=== PATIENT | male | born 1990 | race African-American/Black ===

== ENCOUNTER 2018-10-10 20:02 | Inpatient (IN) | payer SELFPAY ==
[~2018-10-10] VITALS: Ht 188 cm; Wt 74.9 kg
[2018-10-10] MEDS ORDERED: ALBU83IN INH (20:36)
[2018-10-10 20:56] LABS: HEMATOCRIT 49.7 % (42.0-52.0); MEAN CORPUSCULAR HEMOGLOBIN 31.9 pg (27.0-33.0); MEAN CORPUSCULAR HGB CONC 34.2 g/dl (32.0-36.5); MEAN CORPUSCULAR VOLUME 93.2 fl (80.0-96.0); PLATELET COUNT, AUTOMATED 271 10^3/uL (150-450); RED BLOOD COUNT 5.33 10^6/uL (4.30-6.10); WHITE BLOOD COUNT 10.6 10^3/uL (4.0-10.0)
[2018-10-10 21:22] LABS: AMPHETAMINES LEVEL URINE NEGATIVE (NEGATIVE); BARBITURATES URINE NEGATIVE (NEGATIVE); BENZODIAZEPINES URINE NEGATIVE (NEGATIVE); CANNABINOIDS URINE POSITIVE (NEGATIVE); COCAINE METABOLITE URINE NEGATIVE (NEGATIVE); METHADONE URINE NEGATIVE (NEGATIVE); OPIATES URINE NEGATIVE (NEGATIVE); PHENCYCLIDINE URINE NEGATIVE (NEGATIVE)
[2018-10-10 22:09] LABS: ACETAMINOPHEN LEVEL < 2.0 UG/ML (10.0-30.0); ALBUMIN 4.5 GM/DL (3.2-5.2); ALT/SGPT 24 U/L (12-78); BILIRUBIN,DIRECT 0.2 MG/DL (0.0-0.2); BILIRUBIN,TOTAL 0.6 MG/DL (0.2-1.0); BLOOD UREA NITROGEN 13 MG/DL (7-18); CALCIUM LEVEL 9.2 MG/DL (8.5-10.1); CARBON DIOXIDE LEVEL 25 MEQ/L (21-32); CHLORIDE LEVEL 107 MEQ/L (98-107); CREATININE FOR GFR 1.41 MG/DL (0.70-1.30); ETHYL ALCOHOL (ETHANOL) < 0.003 % (0.000-0.010); GLOMERULAR FILTRATION RATE > 60.0 (>60); GLUCOSE, FASTING 117 MG/DL (70-100); POTASSIUM SERUM 4.5 MEQ/L (3.5-5.1); SALICYLATE LEVEL 3.6 MG/DL (5.0-30.0); SODIUM LEVEL 140 MEQ/L (136-145); THYROID STIMULATING HORMONE 0.877 uIU/ML (0.358-3.740); TOTAL PROTEIN 7.9 GM/DL (6.4-8.2)
[2018-10-10] MEDS ORDERED: MAALOX 30 ML SUSP *UDC PO PRN (23:45)
[2018-10-10] MEDS ORDERED: traZODone 50 MG TAB PO PRN (23:45)
[2018-10-10] MEDS ORDERED: ACETAMINOPHEN TAB 650MG DOSE (2X325MG) PO PRN (23:45)
[2018-10-10] MEDS ORDERED: MOM 30ML SUSPENSION UDC PO PRN (23:45)
[2018-10-10] MEDS ORDERED: VENTAER INH (23:56)
[2018-10-11] MEDS ORDERED: NICOTINE 21MG/24HR 1 EA TRANSDERMAL TD ONE (00:15)
[2018-10-11 02:53] VITALS: BP 112/63
[2018-10-11 06:43] VITALS: BP 116/62
[2018-10-11] MEDS ORDERED: NICOTINE 21MG/24HR 1 EA TRANSDERMAL TD SCH (09:00)
--- NOTE | 2018-10-11 10:12 | HPEPDOC ---
[facility] Medical History & Physical Date of Admission Oct 11, 2018 History and Physical PCP: None ATTENDING: Dr. Jarad Srinivasan HPI: 28 [facility], being medically examined today. No acute medical complaints today. Denies any fevers, chills, weakness, fatigue, BAILEY, CP, SOB, cough, palpitations, abdominal pain, N/V/D or changes in bowel or bladder habits. PMHx: Asthma Depression Anxiety Self-harm, cutting PSHX: Denies SOCHX: [place] [facility] [place] Marital Status: Single Kids: 1 Employment: [employer] Tobacco use: 2 packs per day ETOH: Denies Illicit Drugs: Marijuana daily IV Drug Use: Denies Tattoos done unprofessionally: Several FAMHX: Mother: Unknown Father: Alive, diabetes, alcohol use Siblings: 2 sisters Alive, asthma, bipolar disorder Children: Alive, well Unexpected deaths due to medical reasons: None. ROS: As noted in HPI, otherwise 11pt ROS of systems reviewed and unremarkable. PE: GEN: 28 yo M, appears stated age. Well-nourished, well developed. No acute distress. Alert and oriented x 3. Pleasant, interactive. HEENT: Normocephalic, atraumatic. Pupils are equal, round, and reactive to light. Extraocular movements are intact. No nystagmus appreciated. Sclera are nonicteric. Conjunctiva without injection. Nose midline. Nasal turbinates without bogginess. EACs both patent BL. TMs both visualized and whitt with good cone of light, no bulging or erythema. No facial asymmetry. Moist mucous membranes. Dentition fair. Pharynx pink and moist, no cobblestoning. Neck supple, trachea midline. No lymphadenopathy or thyromegaly appreciated. CHEST: Regular rate and rhythm, +S1, +S2 LUNGS: Clear to auscultation bilaterally. No wheezes, rales, or rhonchi. Breathing appears symmetric and easy. Patient is speaking in full sentences. No accessory muscle use. ABD: Round, soft, non-tender, non-distended. +Bowel sounds throughout. No rebound or guarding. No costovertebral angle tenderness. EXT: Pulses 2+ bilaterally dorsalis pedis and radial. No lower extremity edema appreciated. SKIN: [place], dry, warm. Capillary refill <2sec. No rashes. Superficial lacerations noted to the right forearm. NEURO: Alert and oriented x 3. Cranial nerves III-XII are intact. No focal deficits appreciated. EKG: Pending A&P: 28 yo M [facility] for unspecified depressive disorder 1. Psych. Plan per Psychiatry. Obtain baseline EKG to assure the safety of psychiatric medications as they can prolong the QT interval. 2. Nicotine dependence. Patch available. 3. Mild leukocytosis. The patient is asymptomatic. Temperature this morning is noted to be 99.1. Possible stress response. Recheck CBC in a.m. 4. Elevated serum creatinine. Unknown baseline. Possibly related to poor oral intake. Encourage fluids. Request UA with reflex culture. Recheck BMP in a.m. 5. Follow up with PCP on discharge. 6. Substance use. Management per psychiatry. 7. Asthma. Albuterol HFA 2 puffs every 4 hours as needed. 8. Superficial lacerations. Continue to keep area clean and dry. Dry dressing if needed. 9. Staff member Benny present throughout exam. Vital Signs Vital Signs Date Time Temp Pulse Resp B/P (MAP) Pulse Ox O2 Delivery O2 Flow Rate FiO2 10/11/18 06:43 99.1 85 16 116/62 (80) 10/11/18 01:28 95 Room Air Laboratory Data Labs 24H Laboratory Tests 2 10/10/18 20:47: Nucleated Red Blood Cells % (auto) 0.0, Anion Gap 8, Glomerular Filtration Rate > 60.0, Calcium Level 9.2, Aspartate Amino Transf (AST/SGOT) 22, Alanine Aminotransferase (ALT/SGPT) 24, Alkaline Phosphatase 52, Total Bilirubin 0.6, Direct Bilirubin 0.2, Total Protein 7.9, Albumin 4.5, Albumin/Globulin Ratio 1.32, Thyroid Stimulating Hormone (TSH) 0.877, Salicylates Level 3.6L, Urine Amphetamines Screen NEGATIVE, Urine Benzodiazepines Screen NEGATIVE, Urine Opiates Screen NEGATIVE, Urine Methadone Screen NEGATIVE, Acetaminophen Level < 2.0L, Urine Barbiturates Screen NEGATIVE, Urine Phencyclidine Screen NEGATIVE, Urine Cocaine Metabolite Screen NEGATIVE, Urine Cannabinoids Screen POSITIVEH, Ethyl Alcohol Level < 0.003 CBC/BMP Laboratory Tests 10/10/18 20:47 Red Blood Count 5.33, Mean Corpuscular Volume 93.2, Mean Corpuscular Hemoglobin 31.9, Mean Corpuscular Hemoglobin Concent 34.2, Red Cell Distribution Width 13.4 Home Medications Scheduled PRN Albuterol Sulfate (Ventolin Hfa) 108 Mcg/Act Aer, 2 PUFFS INH Q4H PRN for SHORTNESS OF BREATH Allergies Coded Allergies: No Known Drug Allergy (Verified Allergy, Unknown, 10/10/18) Bailey Yarbrough Oct 11, 2018 10:12
[2018-10-11] MEDS ORDERED: ALBUTEROL 90 MCG/ACT 8GM HFA INHALER INH PRN (10:15)
--- NOTE | 2018-10-11 11:27 | MHHPEPDOC ---
General Date Of Admission: Oct 10, 2018 Legal Status: 9.39 Chief Complaint "I had a panic attack and cut myself to relieve emotional pain." History of Present Illness HISTORY OF THE PRESENT ILLNESS: Patient is a 28 -year-old , male, who was brought to ED by [employer] after he had cut himself superficially and sent a picture to his friend who called the police. 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 States he had just had a "bad day" after he was informed by his boss at [employer] that if he missed another night of work (due to inability to find child specialist for his 3y/o daughter) he would be fired. Pt's daughter currently in the care of family friend who was called by ED staff last night and told them that pt had just recently found out he could no longer be in contact with his 16y/o daughter. Pt seen today (superficial cuts on front side of wrist rather than back, not where someone would cut to kill them self) and denies depression and SI. States he had no intention of killing himself but was just having a rough time dealing with current stressors as has limited friends/family to talk to. States he would like it if he could just vent out his frustrations w/o someone telling him "It's your fault." Asked pt about ability to contact 16y/o daughter and stated that family friend called isn't a friend to him and that there isn't a legal standing that he couldn't communicate with his 16y/o daughter but its the friend, Stacy, that doesn't want him to contact her. States he feels safe to go home and would like a therapist to talk to on an outpatient to help him deal with his stressors. States he can walk to [facility]. Past Psychiatric History Previous Psychiatric Diagnosis: denies Previous Psychiatric Admissions: denies Suicide Attempts: denies Psychiatric Follow-up: denies Psychiatric medications: denies Past Medical History Medical Problems denies Head Injury: No Seizures: No Hospitalizations: No Surgeries: No Family Medical/Psychiatric HX Medical Problems denies Psychiatric Disorders: No Addiction: No Suicide Attemps/Completions: No Addiction History nicotine, other (cannabis daily) Social History Childhood: born and raised [place], [place] by parents. Father lives above him in same home and just started being in his life. Mother in [place], no contact. 1 older half-sister, 1 younger sister. Good childhood Abuse/Trauma:denies Current Living Situation: lives alone with 3y/o daughter Education: high school grad, 1yr criminal justice Employment: [employer] Social Support: family, friends Legal: arrest in [place] for burglary (states was just trying to find a place to sleep homeless in [place] at age 21) Marital: single, 3 y/o daughter. 16 y/o daughter who is with her mother and he is no longer able to contact her. Mental Status Examination General Appearance: well groomed, appears stated age, hospital scubs/clothing, other (malodorous, superficial cuts on front of left wrist) Build: average Demeanor: average, other (pleasant) Eye Contact: average Activity: average Behavior: cooperative Speech: clear, spontaneous, normal volume, reg/rate,rhythm,volume Mood: euthymic Mood alight Affect: full, appropriate, congruent Thought Process: logical/linear, intact Thought Content (Delusions): none reported, denies SI, HI, AVH Thought Content (Other): none reported, appropriate Thought Content (Aggressive): none reported Perception (Hallucinations): none reported Perception (Other): none reported Cognition (Impairment of): none reported Cognition(Intelligence Est.): average Oriented: Awake, Alert, Oriented times three Insight: good Judgment: Good Psychosis: Denies Diagnoses 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 States he had no intention of killing himself but was just having a rough time dealing with current stressors as has limited friends/family to talk to. States he would like it if he could just vent out his frustrations w/o someone telling him "It's your fault." Asked pt about ability to contact 16y/o daughter and stated that family friend called isn't a friend to him and that there isn't a legal standing that he couldn't communicate with his 16y/o daughter but its the friend, Stacy, that doesn't want him to contact her. States he feels safe to go home and would like a therapist to talk to on an outpatient to help him deal with his stressors. States he can walk to [facility]. Initial Treatment Plan 1. Patient was admitted on a [9.39] status. 2. Complete history was obtained. 3. With patients permission, family will be contacted and database will be expanded. 4. Patients medication regimen will be reviewed and changed accordingly. 5. Patient will be provided with protected environment. 6. Patient will be treated with individual, group, and milieu therapies. 7. Patient will receive supportive psych-education. 8. Discharge planning will commence immediately. 9. Outpatient follow-up treatment will be strongly recommended. 10. The initial treatment plan will focus initially on: * Depression. * Risk for suicide. * Substance abuse. 11. d/c home with follow-up cc ESTIMATED LENGTH OF STAY: 1-3 DAYS. TIME SPENT COUNSELING AND COORDINATING INITIAL CARE: 60 minutes. Vital Signs Vital Signs Date Time Temp Pulse Resp B/P (MAP) Pulse Ox O2 Delivery O2 Flow Rate FiO2 10/11/18 06:43 99.1 85 16 116/62 (80) 10/11/18 01:28 95 Room Air Laboratory Data 24H Labs Laboratory Tests 2 10/10/18 20:47: Nucleated Red Blood Cells % (auto) 0.0, Anion Gap 8, Glomerular Filtration Rate > 60.0, Calcium Level 9.2, Aspartate Amino Transf (AST/SGOT) 22, Alanine Aminotransferase (ALT/SGPT) 24, Alkaline Phosphatase 52, Total Bilirubin 0.6, Direct Bilirubin 0.2, Total Protein 7.9, Albumin 4.5, Albumin/Globulin Ratio 1.32, Thyroid Stimulating Hormone (TSH) 0.877, Salicylates Level 3.6L, Urine Amphetamines Screen NEGATIVE, Urine Benzodiazepines Screen NEGATIVE, Urine Opiates Screen NEGATIVE, Urine Methadone Screen NEGATIVE, Acetaminophen Level < 2.0L, Urine Barbiturates Screen NEGATIVE, Urine Phencyclidine Screen NEGATIVE, Urine Cocaine Metabolite Screen NEGATIVE, Urine Cannabinoids Screen POSITIVEH, Ethyl Alcohol Level < 0.003 CBC/BMP Laboratory Tests 10/10/18 20:47 Red Blood Count 5.33, Mean Corpuscular Volume 93.2, Mean Corpuscular Hemoglobin 31.9, Mean Corpuscular Hemoglobin Concent 34.2, Red Cell Distribution Width 13.4 Medications Scheduled PRN Albuterol Sulfate (Ventolin Hfa) 108 Mcg/Act Aer, 2 PUFFS INH Q4H PRN for SHORTNESS OF BREATH, (Reported) Allergies Coded Allergies: No Known Drug Allergy (Verified Allergy, Unknown, 10/10/18) OLLIE LOW DO Oct 11, 2018 11:27 am
--- NOTE | 2018-10-11 11:31 | MHDSPDOC ---
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 States he had just had a "bad day" after he was informed by his boss at [employer] that if he missed another night of work (due to inability to find child adolescent psychiatrist for his 3y/o daughter) he would be fired. Pt's daughter currently in the care of family friend who was called by ED staff last night and told them that pt had just recently found out he could no longer be in contact with his 16y/o daughter. Pt seen today (superficial cuts on front side of wrist rather than back, not where someone would cut to kill them self) and denies depression and SI. States he had no intention of killing himself but was just having a rough time dealing with current stressors as has limited friends/family to talk to. States he would like it if he could just vent out his frustrations w/o someone telling him "It's your fault." Asked pt about ability to contact 16y/o daughter and stated that family friend called isn't a friend to him and that there isn't a legal standing that he couldn't communicate with his 16y/o daughter but its the friend, Stacy, that doesn't want him to contact her. States he feels safe to go home and would like a therapist to talk to on an outpatient to help him deal with his stressors. States he can walk to [facility]. CONSULTANTS INVOLVED: none TREATMENT AND PROGRESS ON THE UNIT : Pt was admitted to [facility], seen for psychiatric assessment and monitored for safety. He was provided trazodone 50mg qhs prn insomnia. He attended groups daily during his stay. His symptoms improved with treatment. On day of discharge he denied depression, anxiety, insomnia, SI/HI, hallucinations, delusions. He was discharged home with follow-up at [facility]. He felt safe for discharge. DISCHARGE ASSESSMENT: Pt seen today (superficial cuts on front side of wrist rather than back, not where someone would cut to kill them self) and denies depression and SI. States he had no intention of killing himself but was just having a rough time dealing with current stressors as has limited friends/family to talk to. States he would like it if he could just vent out his frustrations w/o someone telling him "It's your fault." Asked pt about ability to contact 16y/o daughter and stated that family friend called isn't a friend to him and that there isn't a legal standing that he couldn't communicate with his 16y/o daughter but its the friend, Stacy, that doesn't want him to contact her. States he feels safe to go home and would like a therapist to talk to on an outpatient to help him deal with his stressors. States he can walk to [facility]. MENTAL STATUS EXAMINATION ON DISCHARGE: General Appearance: well groomed, appears stated age, hospital scubs/clothing, other (malodorous, superficial cuts on front of left wrist) Build: average Demeanor: average, other (pleasant) Eye Contact: average Activity: average Behavior: cooperative Speech: clear, spontaneous, normal volume, reg/rate,rhythm,volume Mood: euthymic Mood alight Affect: full, appropriate, congruent Thought Process: logical/linear, intact Thought Content (Delusions): none reported, denies SI, HI, AVH Thought Content (Other): none reported, appropriate Thought Content (Aggressive): none reported Perception (Hallucinations): none reported Perception (Other): none reported Cognition (Impairment of): none reported Cognition(Intelligence Est.): average Oriented: Awake, Alert, Oriented times three Insight: good Judgment: Good Psychosis: Denies MEDICATIONS ON DISCHARGE: -none PLAN/FOLLOWUP ARRANGEMENTS: d/c home with [facility] The amount of time spent in the coordination of care for this patient was approximately 30 minutes. Vital Signs/I&Os Vital Signs Date Time Temp Pulse Resp B/P (MAP) Pulse Ox O2 Delivery O2 Flow Rate FiO2 10/11/18 06:43 99.1 85 16 116/62 (80) 10/11/18 01:28 95 Room Air Laboratory Data Labs 24H Laboratory Tests 2 10/10/18 20:47: Nucleated Red Blood Cells % (auto) 0.0, Anion Gap 8, Glomerular Filtration Rate > 60.0, Calcium Level 9.2, Aspartate Amino Transf (AST/SGOT) 22, Alanine Aminotransferase (ALT/SGPT) 24, Alkaline Phosphatase 52, Total Bilirubin 0.6, Direct Bilirubin 0.2, Total Protein 7.9, Albumin 4.5, Albumin/Globulin Ratio 1.3 2, Thyroid Stimulating Hormone (TSH) 0.877, Salicylates Level 3.6L, Urine Amphetamines Screen NEGATIVE, Urine Benzodiazepines Screen NEGATIVE, Urine Opiates Screen NEGATIVE, Urine Methadone Screen NEGATIVE, Acetaminophen Level < 2.0L, Urine Barbiturates Screen NEGATIVE, Urine Phencyclidine Screen NEGATIVE, Urine Cocaine Metabolite Screen NEGATIVE, Urine Cannabinoids Screen POSITIVEH, Ethyl Alcohol Level < 0.003 CBC/BMP Laboratory Tests 10/10/18 20:47 Red Blood Count 5.33, Mean Corpuscular Volume 93.2, Mean Corpuscular Hemoglobin 31.9, Mean Corpuscular Hemoglobin Concent 34.2, Red Cell Distribution Width 13.4 Medications Scheduled PRN Albuterol Sulfate (Ventolin Hfa) 108 Mcg/Act Aer, 2 PUFFS INH Q4H PRN for SHORTNESS OF BREATH, (Reported) Allergies Coded Allergies: No Known Drug Allergy (Verified Allergy, Unknown, 10/10/18) OLLIE LOW DO Oct 11, 2018 11:31 am
== END 2018-10-11 14:25 | disposition home or self-care (01) | DRG 755 ==
LOC: M ED 20:02 → M ED INP 23:35 → M PSY 10-11 01:36
PROVIDERS: ADMIT Psychiatry & Neurology Psychiatry; ATTEND Psychiatry & Neurology Psychiatry
DX: F40.01 Agoraphobia with panic disorder (principal); F43.23 Adjustment disorder with mixed anxiety and depressed mood; F12.90 Cannabis use, unspecified, uncomplicated; J45.909 Unspecified asthma, uncomplicated; F17.200 Nicotine dependence, unspecified, uncomplicated; D72.829 Elevated white blood cell count, unspecified

== ENCOUNTER 2018-12-16 10:31 | Emergency (ER) | payer SELFPAY ==
[~2018-12-16] VITALS: Ht 188 cm; Wt 78.6 kg
[~2018-12-16 10:31] MED LIST: ALBU83IN INH; VENTAER INH
[2018-12-16] MEDS ORDERED: ALBU83IN NEB (10:39)
[2018-12-16] MEDS ORDERED: INDO25CA PO (12:24)
[2018-12-16] MEDS ORDERED: PENI500T PO (12:24)
--- NOTE | 2018-12-16 12:24 | REP ---
Pain after trauma, attention first digit. PRIORS: None. FINDINGS: The joint spaces are symmetric and relatively well maintained. There is no evidence of acute fracture or destructive osseous lesion. IMPRESSION: Negative. Electronically Signed by Davon Tan DO 12/16/2018 02:33 P
[2018-12-16 12:31] VITALS: BP 114/63
== END 2018-12-16 12:41 | disposition home or self-care (01) ==
LOC: M ED 10:31
DX: M19.071 Primary osteoarthritis, right ankle and foot (principal); K04.7 Periapical abscess without sinus; J45.909 Unspecified asthma, uncomplicated; Z72.0 Tobacco use